=== PATIENT | female | born 1960 ===

== ENCOUNTER 2016-09-19 17:45 | Observation (INO) | payer SELFPAY ==
[2016-09-19 19:12] VITALS: BP 108/62; PULSE 65; RESP 17; TEMP 98; O2SAT 99
[2016-09-19 20:46] LABS: BASO # 0.1 K/uL (0.0-0.2); BASO % 0.9 % (0.0-2.0); EOS # 0.1 K/uL (0.0-0.7); EOS % 1.5 % (0.0-4.0); LYMPH # 2.9 K/uL (1.0-4.3); LYMPH % 42.6 % (20.0-40.0); MEAN CORPUSCULAR HGB CONC 34.1 g/dL (33.0-37.0); MEAN PLATELET VOLUME 7.9 fl (7.2-11.7); MONO # 0.7 K/uL (0.0-0.8); MONO % 9.6 % (0.0-10.0); NEUT # 3.1 K/uL (1.8-7.0); NEUT % 45.4 % (50.0-75.0); NRBC % 0.1 % (0.0-0.0); RED CELL DISTRIBUTION WIDTH 12.8 % (11.5-14.5); WHITE BLOOD COUNT 6.9 K/uL (4.8-10.8)
[2016-09-19 20:58] LABS: RBC URINE 2 /hpf (0-3); URINE BILIRUBIN NEGATIVE (NEGATIVE); URINE BLOOD NEGATIVE (NEGATIVE); URINE COLOR STRAW (YELLOW); URINE GLUCOSE (UA) NEG (Normal); URINE KETONE NEGATIVE (NEGATIVE); URINE LEUKOCYTE ESTERASE TRACE Leu/uL (Negative); URINE PROTEIN NEGATIVE (NEGATIVE); URINE UROBILINOGEN 0.2-1.0 mg/dL (0.2-1.0); WBC URINE 2 /hpf (0-5)
[2016-09-19 21:09] LABS: ALB/GLOB RATIO 1.2 (1.0-2.1); ALKALINE PHOSPHATASE 89 U/L (38-126); ALT/SGPT 56 U/L (9-52); AST/SGOT 63 U/L (14-36); BILIRUBIN,TOTAL 0.6 mg/dl (0.2-1.3); BLOOD UREA NITROGEN 12 mg/dl (7-17); CALCIUM 9.4 mg/dL (8.4-10.2); CARBON DIOXIDE 33 mmol/L (22-30); CHLORIDE 97 mmol/L (98-107); GFR AFRICAN-AMERICAN > 60; GLUCOSE,RANDOM 94 mg/dL (65-105); POTASSIUM 3.7 MMOL/L (3.6-5.0); SODIUM 140 mmol/l (132-148); TOTAL PROTEIN 8.1 G/DL (6.3-8.2)
--- NOTE | 2016-09-19 21:14 | ED PDOC ---
HPI: Abdomen Time Seen by Provider: 09/19/16 19:38 Chief Complaint (Nursing): Abdominal Pain Chief Complaint (Provider): Abdominal Pain History Per: Patient History/Exam Limitations: no limitations Onset/Duration Of Symptoms: Days (1 week), Worse Since (over the past 3 days) Outside of [place] travel?: No Current Symptoms Are (Timing): Still Present Severity: Moderate Location Of Pain/Discomfort: RUQ, Suprapubic, Other (R flank) Associated Symptoms: Nausea, Constipation (occasional). denies: Vomiting Exacerbating Factors: Food (suprapubic pain is exacerbated when eating or drinking something sweet) Additional Complaint(s): Shantel Jimenes is a 56 year old female, with no pertinent past medical history, who presents to the emergency department for the evaluation of abdominal pain, localized to her right flank, right upper quadrant, and suprapubic quadrants, that the patient has been experiencing for 1 week, which has worsened over the past 3 days. Patient states that her suprapubic pain is exacerbated when eating or drinking something sweet. Associated nausea and occasional constipation are currently present. Denies vomiting. PMD: [facility] Past Medical History Reviewed: Historical Data, Nursing Documentation, Vital Signs Vital Signs: Last Vital Signs Temp 98.0 F 09/19/16 19:02 Pulse 65 09/19/16 19:02 Resp 17 09/19/16 19:02 BP 108/62 09/19/16 19:02 Pulse Ox 99 09/19/16 22:20 - Medical History PMH: No Chronic Diseases - Surgical History Other surgeries: R Oophorectomy - Family History Family History: States: No Known Family Hx - Social History Current smoker - smoking cessation education provided: No Ex-Smoker (has not smoked in the last 12 months): No Alcohol: None Drugs: Denies - Allergies Allergies/Adverse Reactions: Allergies Allergy/AdvReac Type Severity Reaction Status Date / Time No Known Allergies Allergy Verified 09/19/16 17:48 Review of Systems ROS Statement: Except As Marked, All Systems Reviewed And Found Negative Gastrointestinal: Positive for: Nausea, Abdominal Pain (R flank, RUQ, and suprapubic quadrants), Constipation (occasional). Negative for: Vomiting Physical Exam - Reviewed Nursing Documentation Reviewed: Yes Vital Signs Reviewed: Yes - Physical Exam Appears: Positive for: Non-toxic, No Acute Distress Head Exam: Positive for: ATRAUMATIC, NORMOCEPHALIC Skin: Positive for: Normal Color, Warm, DRY Cardiovascular/Chest: Positive for: Regular Rate, Rhythm. Negative for: Murmur Respiratory: Positive for: Normal Breath Sounds. Negative for: Respiratory Distress Gastrointestinal/Abdominal: Positive for: Normal Exam, Soft. Negative for: Tenderness, Guarding, Rebound Back: Positive for: Normal Inspection. Negative for: L CVA Tenderness, R CVA Tenderness Neurologic/Psych: Positive for: Alert, Oriented - Laboratory Results Result Diagrams: 09/19/16 20:37 09/19/16 20:37 - ECG O2 Sat by Pulse Oximetry: 99 (RA) Pulse Ox Interpretation: Normal Medical Decision Making Medical Decision Makin:38 Initial Impression: Possible urinary tract infection versus cholelithiasis Initial Plan: * CT Abdomen & Pelvis w/ IV Contrast * Abdomen Complete Ultrasound * Complete Blood Count * Comprehensive Metabolic Panel * Urine Dip * Urinalysis * Urine Culture * Reevaluation 21:52 Patient will be placed within ED Observation secondary to time-extensive ED workup. Pending CT Abdomen & Pelvis w/ IV Contrast. See Observation note for further updates. Scribe Attestation: Documented by Nirav Sanchez, acting as a scribe for Raulito Burgos MD. Provider Scribe Attestation: All medical record entries made by the Scribe were at my direction and personally dictated by me. I have reviewed the chart and agree that the record accurately reflects my personal performance of the history, physical exam, medical decision making, and the department course for this patient. I have also personally directed, reviewed, and agree with the discharge instructions and disposition. ED OBSERVATION Discharge: Yes Date of observation admission: 09/19/16 Time of observation admission: 21:52 - Observation admission statement Patient is being placed in observation because:: Patient will be placed within ED Observation secondary to time-extensive ED workup. - Goals of Observation Goals of observation are:: Pending CT Abdomen & Pelvis w/ IV Contrast. - Progress Note Progress Note: 09/20/16 02:36 Pt. w/ largely negative workup, will treat for constipation and send patient to dr. hugo for f/u, return precautions given. Pt. requesting refill of HCTZ 25mg. Disposition - Clinical Impression Clinical Impression: Constipation - Disposition Disposition: Routine/Home Disposition Time: 02:37 Condition: STABLE
--- NOTE | 2016-09-19 21:34 | US ---
EXAM: US Abdomen Complete CLINICAL HISTORY: 56 years old, female; Pain; Abdominal pain; Epigastric; Additional info: Ruq/rt flank painradiating to rt groin TECHNIQUE: Real-time ultrasound of the abdomen (complete) with image documentation. EXAM DATE/TIME: 09/19/2016 7:52 PM COMPARISON: There are no prior studies for comparison. FINDINGS: Liver: Liver is unremarkable. There is hepatopedal flow in the main portal vein. Gallbladder: Gallbladder is distended with no shadowing stones. There is dependent sludge. There is no wall thickening. Common bile duct: Common bile duct measures 4.4 mm in diameter. Pancreas: Pancreas is partially obscured by bowel gas. Kidneys: Right kidney is unremarkable.Left kidney is unremarkable. Spleen: Spleen is unremarkable. Aorta: Visualized portions of the aorta and inferior vena cava are unremarkable. Inferior vena cava: See above. IMPRESSION: Distended gallbladder with sludge, no stones or ductal dilatation; no renal stones or hydronephrosis Patient was not tender over the gallbladder
[2016-09-20] MEDS ORDERED: Iohexol 300 100 ML IJ ONE (00:01)
[2016-09-20] MEDS ORDERED: Sodium Chloride 0.9% 50 ML IV ONE (00:01)
--- NOTE | 2016-09-20 02:21 | CT ---
EXAM: CT Abdomen and Pelvis With Intravenous Contrast CLINICAL HISTORY: 56 years old, female; Pain; Abdominal pain; Localized; Right; Additional info: R sided abd pain, R/O appy TECHNIQUE: Axial computed tomography images of the abdomen and pelvis with intravenous contrast. This CT exam was performed using one or more of the following dose reduction techniques: automated exposure control, adjustment of the mA and/or kV according to patient size, and/or use of iterative reconstruction technique. Coronal and sagittal reformatted images were created and reviewed. CONTRAST: 95 mL of [id number] administered intravenously. EXAM DATE/TIME: Exam ordered 09/19/2016 9:51 PM COMPARISON: No relevant prior studies available. FINDINGS: Lower thorax: lung bases with atelectatic changes, with diffuse groundglass which may reflect poor inspiration rather than pathology, correlate clinically. ABDOMEN: Liver: Unremarkable. No mass. Gallbladder and bile ducts: Unremarkable. No calcified stones. No ductal dilation. Pancreas: Unremarkable. No mass. No ductal dilation. Spleen: Unremarkable. No splenomegaly. Adrenals: Unremarkable. No mass. Kidneys and ureters: 4 mm hypoattenuating finding in the right lobe of the liver, possible hepatic steatosis, mild heterogeneity of the liver which may reflect in part phase of contrast enhancement. No there are punctate right pelvic calcifications which might reflect distal ureteral stone setting these are difficult to localize and there is no hydronephrosis. Laboratory correlation. Stomach and bowel: There is increased fecal content throughout large intestine, constipation might contribute to patient's symptoms. No findings to suggest acute bowel obstruction. No mucosal thickening. Appendix: The appendix is clearly seen and is normal. PELVIS: Bladder: Unremarkable. No mass. Reproductive: Uterus not seen, please correlate with previous. ABDOMEN and PELVIS: Intraperitoneal space: Unremarkable. No free air. No significant fluid collection. Bones/joints: Degenerative spine changes. No acute fracture. No dislocation. Soft tissues: Unremarkable. Vasculature: Unremarkable. No abdominal aortic aneurysm. Lymph nodes: Unremarkable. No enlarged lymph nodes. IMPRESSION: Normal appendix. Question punctate right ureteral calculus, laboratory correlation. Heterogeneous liver not fully characterized on this study, suggest correlation with laboratory studies, this may be an artifact of the early phase of enhancement. Increased fecal content in the large intestine, please correlate whether this may contribute to symptoms.
== END 2016-09-20 02:48 | disposition home or self-care (01) ==
LOC: H.ER 17:45 → H.EROBSV 19:50
PROVIDERS: ADMIT Emergency Medicine; ATTEND Emergency Medicine
DX: K59.00 Constipation, unspecified (principal)
CPT/HCPCS: 74177; 76700; 80053; 81003; 85025; 87086; 99283; G0378; Q9967